=== PATIENT | male | born 2000 | race Hispanic/Latino ===

== ENCOUNTER 2025-01-26 00:28 | Emergency (ER) | payer SELFPAY ==
[2025-01-26] VITALS (7 sets, daily range): BP systolic 123–150; BP diastolic 74–95; BMI 34.3
[2025-01-26 00:51] LABS: % Basophils 0.7 % (0-2); % Eosinophils 2.4 % (0-6); % Immature Granulocytes 0.2 % (0-0.5); % Lymphocytes 36.8 % (20.5-51.1); % Monocytes 10.9 % (1.7-9.3); Absolute Basophils 0.1 10^3/uL (0-0.2); Absolute Eosinophils 0.2 10^3/uL (0-0.7); Absolute Lymphocytes 3.2 10^3/uL (1.2-3.4); Absolute Neutrophils 4.3 10^3/uL (1.4-6.5); Hematocrit 41.8 % (39.0-52.0); Mean Corp Hgb Conc. 35.9 g/dL (33.0-37.0); Mean Corpuscular Hgb 31.3 pg (27.0-31.0); Mean Corpuscular Volume 87.1 fL (80.0-94.0); Mean Platelet Volume 10.4 fL (7.4-10.4); Nucleated Red Blood Cells % 0 % (-); Platelet Count 233 10^3/uL (130-400); Red Cell Dist. Width 13.5 % (11.5-14.5); White Blood Cell Count 8.8 10^3/uL (4.8-10.8)
[2025-01-26 01:17] LABS: ALT (SGPT) 114 U/L (0-50); AST (SGOT) 61 U/L (17-59); Alkaline Phosphatase 152 U/L (38-126); Blood Urea Nitrogen 19 mg/dl (9-20); Calcium 9.1 mg/dl (8.4-10.2); Carbon Dioxide 21 mmol/L (22-30); Chloride 109 mmol/L (98-107); Glucose 145 mg/dl (70-99); Potassium 3.7 mmol/L (3.5-5.1); Sodium 141 mmol/L (135-145); Total Bilirubin 0.6 mg/dl (0.2-1.3); Total Protein 7.6 g/dl (6.3-8.2); eGFR > 60.00
[2025-01-26 01:25] LABS: Troponin I 0.016 ng/ml
[2025-01-26] MEDS: NSS 1000 IV (01:42)
[2025-01-26 02:18] LABS: COVID-19 Antigen Negative (Negative)
--- NOTE | 2025-01-26 03:31 | ED.GENMED ---
History of Present Illness
General
Chief Complaint: Heart Rate Problem
Source: patient and ambulance crew
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
Time Seen by Provider: 01/26/25 02:31
Nursing documentation reviewed up to this point in time: agreed with
History of Present Illness
History of Present Illness:
This is a 24-year-old gentleman who arrives via EMS with complaints of palpitations, feeling that his heart is beating rapidly accompanied with feeling anxious, agitated. He admits to similar episodes, sporadically which generally occur in the
evening hours when he is attempting to go to sleep and generally resolve when he gets up or goes for a run. Tonight he had no relief with getting up and running around, continued to feel anxious, agitated with palpitations feeling that his heart
was beating somewhat hard and rapidly but denies skipping a beat or irregular heartbeat and denies chest pain, denies shortness of breath, denies dizziness nor lightheadedness.
He admits to occasional alcohol use, drank 1 alcoholic beverage yesterday and perhaps 1-2 last weekend.
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
No recent travel. He denies leg pain or swelling.
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
Patient admits to somewhat similar anxiety and palpitations while residing in [place] over 4 years ago. At that time was diagnosed with tachycardia which was thought to be related to his drug use.
He takes no medicines on a daily basis.
He was evaluated by a physician 3 weeks ago with complaints of left upper abdominal pain, placed on a 2-week course of acid aura with relief of pain.
Past History
Past History
ED Past Medical History: Psychiatric
ED Past Surgical History: None
Social History
Tobacco: Non-smoker
Alcohol: Occasional
Drug: Former user
Personal: Single
Living: with family
Employment: Employed
Family History
Family History: Other (Noncontributory); Negative CAD or Sudden
Phy Exam
Physical Exam
Physical Exam:
GENERAL: 24-year-old overweight Persian-speaking gentleman appears his stated age, awake and alert, mildly apprehensive but easily communicative.
EYE: anicteric
NECK: Supple, nontender, no meningismus, no significant adenopathy.
ENT: oral mucosa is moist. No rhinorrhea.
CARDIAC: Regular rate and rhythm. no murmur.
LUNGS: Clear breath sounds bilaterally, no acute respiratory distress, no wheezes/rales/rhonchi
ABDOMEN: Soft, nondistended, without focal tenderness, no r/g, no cvat. normoactive BS.
NEUROLOGICAL: Alert and oriented x3, no focal neuro deficits.
SKIN: Warm and dry, normal color, skin intact. No rash.
MUSCULOSKELETAL: No C/C/E. peripheral pulses are full and equal b/l. No palpable tenderness.
PSYCH: Normal and appropriate interaction.
Course
Orders/Labs/Results
Orders:
Orders
01/26/25 00:35
Electrocardiogram (*1) Urgent
Reason for Study: Chest Pain
EKG- Treatment ONCE
01/26/25 00:44
Complete Blood Count/With Diff Urgent
Comprehensive Metabolic Panel Urgent
TSH Reflex To Free T4 Urgent
Comment: ADD ON
Troponin I Urgent
01/26/25 01:40
0.9% Sodium Chloride 1000 ml [Nss] 1,000 ml IV BOLUS
01/26/25 01:50
COVID-19 Antigen Urgent
Source: Nasal Swab
INF RAPID [Influenza A+B Rapid Molecular] Urgent
RADHIKA Source: Nasal Swab
Specimen Description:
01/26/25 02:30
Add On- LAB Urgent
Tests Added?: TSH reflex to T4
01/26/25 03:23
Urine Drug Abuse Screen Urgent
Date Specimen was Collected: 01/26/25
Time Specimen was Collected: 03:20
Abnormal Lab Results
01/26/25
00:44
MCH 31.3 H pg
(27.0-31.0)
Absolute Monos (auto) 1.0 H 10^3/uL
(0.1-0.6)
Monocytes % 10.9 H %
(1.7-9.3)
Chloride 109 H mmol/L
(98-107)
Carbon Dioxide 21 L mmol/L
(22-30)
Glucose 145 H mg/dl
(70-99)
AST 61 H U/L
(17-59)
ALT 114 H U/L
(0-50)
Alkaline Phosphatase 152 H U/L
(38-126)
01/26/25 00:44
01/26/25 00:44
Vital Signs
Initial and Last Documented VS:
Initial Vital Signs
Temp Pulse Resp BP Pulse Ox
98.8 F 101 18 147/95 98
01/26/25 00:31 01/26/25 00:31 01/26/25 00:31 01/26/25 00:31 01/26/25 00:31
Last Documented Vital Signs
Temp Pulse Resp BP Pulse Ox
98.8 F 75 13 123/75 98
01/26/25 00:31 01/26/25 04:04 01/26/25 04:04 01/26/25 04:04 01/26/25 02:27
MDM/Problems Addressed
Differential Diagnosis Includes:
Concern for tachy-arrhythmia, thyroid disorder, dehydration, alcohol use disorder, substance abuse.
Patient feeling improved after IV fluids.
EKG shows mild sinus tachycardia otherwise unremarkable.
rn radiology shows normal sinus rhythm in the 80s to 90s.
Moderate hypertension noted initially has since normalized.
Labs show mildly elevated LFTs, otherwise unremarkable. Patient continues to deny frequent or daily alcohol consumption.
TSH is pending.
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
*Pulse Oximetry
Patient hypoxic: no
*EKG
Interpreted by ED Provider?: Yes
Comparison EKG: no comparison EKG present
Heart Rate: 104
Rate: tachycardiac
Rhythm: sinus
[place]: normal axis
Interval: normal interval
QRS Pattern: normal QRS
Ischemia: no ischemia
*Dog Pound Attendant Interpretation
Rate: normal
Interpretation: normal
Rhythm: sinus
*Critical Care Note
Total Time (30-74mins, 75-104mins- exclusive of procedures): Not Applicable
Update Note
Update Note:
05:00
Patient resting comfortably. Sleeps when undisturbed.
Monitor shows normal sinus rhythm.
Blood pressure is normalized.
TSH is normal.
UDS is negative, consistent with history.
Will discharge to home with recommendations to stay well-hydrated on a daily basis. Avoid caffeinated beverages, avoid alcoholic beverages.
Prompt follow-up with PCP for recheck.
ED Attending Note
-
Portions of this chart may have been created with voice recognition software.� Occasional wrong word or��sound alike� substitutions may have occurred due to the inherent limitations of voice recognition software.
Discharge Plan
Departure
Patient Disposition: Home (Routine Discharge)
Date of Disposition: 01/26/25
Time of Disposition: 05:01
Patient with high blood pressure during this ER visit?: No
Condition: Good
Discharge Problem:
Sinus tachycardia, Heart palpitations
Instructions: Sinus Tachycardia (DC), Palpitations
Prescriptions:
No Action
No Current Medications
0
Referrals:
NONE,* [Family Provider] - Call in 1-3 days for appt
Interventions
Interventions:
*Risk Screen - Suicide Last Done: 01/26/25 00:31
*General Assessment Last Done: 01/26/25 00:31
*Neglect/Abuse Screening Last Done: 01/26/25 00:31
*ED- Fall Risk Assessment Last Done: 01/26/25 02:08
*ED COVID-19 Vaccine History Last Done: 01/26/25 00:31
ED- Cardiac Assessment Last Done: 01/26/25 01:53
ED- Pulmonary Assessment Last Done: 01/26/25 01:53
Discharge Date and Time
Print Language: UKRAINIAN
[2025-01-26 03:41] LABS: Amphetamines Negative (Negative); Barbiturates Negative (Negative); Benzodiazepines Negative (Negative); Buprenorphine Negative (Negative); Cocaine Negative (Negative); Marijuana Negative (Negative); Methadone Negative (Negative); Methamphetamines Negative (Negative); Opiates Negative (Negative); Phencyclidine Negative (Negative); Tricyclic Antidepressants Negative (Negative)
[2025-01-26 04:25] LABS: TSH Reflex To Free T4 2.88 uIU/ml (0.47-4.68)
== END 2025-01-26 05:28 | disposition home or self-care (01) ==
LOC: EMR 00:28
PROVIDERS: EMERGENCY PHYSICIAN Emergency Medicine
DX: R00.2 Palpitations (principal); R00.0 Tachycardia, unspecified; Z11.52 Encounter for screening for COVID-19
CPT/HCPCS: 99284; 96360; 80053; 80306; 84443; 84484; 85025; 87502; 87811; 93005